=== PATIENT | female | born 1940 | race Caucasian/White ===

== ENCOUNTER 2017-05-18 10:32 | Emergency (ER) | payer OTHER ==
--- NOTE | 2017-05-18 11:04 | CPEKG ---
Heart Rate: 65 RR Interval: 923 P-R Interval: 156 QRSD Interval: 82 QT Interval: 384 QTC Interval: 400 P Sidney: 69 QRS Sidney: 61 T Wave Sidney: 66 EKG Severity - NORMAL ECG - EKG Impression: SINUS RHYTHM Electronically Signed By: Radha Pepper 18-May-2017 23:00:43
[2017-05-18] MEDS ORDERED: NS 1,000 ML IV ONE (11:08)
[2017-05-18 11:18] LABS: % IMMATURE GRANULYOCYTES 0.6 % (0.0-1.1); ABSOLUTE IMMATURE GRANULOCYTES 0.03 10^3/uL (0.00-0.10); ADD DIFF? NO; ADD MORPH? NO; ADD SCAN? NO; ATYPICAL LYMPHOCYTE FLAG 20 (0-99); FRAGMENT RBC FLAG 0 (0-99); HEMATOCRIT 41.3 % (38.0-47.0); HEMOGLOBIN 14.1 g/dL (12.6-16.3); LEFT SHIFT FLG 0 (0-99); LIPEMIA HEMOLYSIS FLAG 90 (0-99); MEAN CELL HEMOGLOBIN 31.8 pg (27.9-34.1); MEAN CELL HEMOGLOBIN CONCENTR. 34.1 g/dL (32.4-36.7); MEAN PLATELET VOLUME 11.1 fL (8.7-11.7); PLATELET CLUMPS FLAG 0 (0-99); PLATELET COUNT 220 10^3/uL (150-400); RED BLOOD CELL COUNT 4.44 10^6/uL (4.18-5.33); RED CELL DISTRIBUTION WIDTH 13.1 % (11.5-15.2)
--- NOTE | 2017-05-18 11:25 | EDPHY ---
H & P Stated Complaint: 2 episodes of syncope this morning. LOC reported by god daughter. Source: Patient Exam Limitations: No limitations - Personal History Current Tetanus Diphtheria and Acellular Pertussis (TDAP): Yes - Medical/Surgical History Hx Asthma: No Hx Chronic Respiratory Disease: No Hx Diabetes: No Hx Cardiac Disease: No Hx Renal Disease: No Hx Cirrhosis: No Hx Alcoholism: No Hx HIV/AIDS: No Hx Splenectomy or Spleen Trauma: No Other PMH: Glaucoma. l knee replacement. Hypotension. Hypothyroidism - Family History Significant Family History: No pertinent family hx - Social History Smoking Status: Former smoker Alcohol Use: None Time Seen by Provider: 05/18/17 10:59 HPI/ROS: CHIEF COMPLAINT: Syncope HISTORY OF PRESENT ILLNESS: Patient is a 76-year-old female who is brought in by her god daughter after a syncopal episode this morning. The patient states that she did not feel quite right when she woke up. She felt tired but thought that if she ate breakfast it would help. While sitting at the breakfast table she began to slump sideways. Her God daughter caught her and helped her to the couch. She fainted again in route to the couch. These episodes were only a few seconds apart. She did not vomit. She denies chest pain or palpitations. She continues to feel slightly tired and weak. No focal deficits. No seizure- like activity. No headache. No chest pain or palpitations. No nausea vomiting. No recent fevers or illness. No urinary symptoms. She states that she did begin taking a pain medication for her neck 3 nights ago but does not remember the name. She had been prescribed a long time ago but had never really used it. No bleeding. REVIEW OF SYSTEMS: Constitutional: denies: chills, fever, recent illness, recent injury EENTM: denies: blurred vision, double vision, nose congestion Respiratory: denies: cough, shortness of breath Cardiac: See HPI denies: chest pain, irregular heart rate, palpitations Gastrointestinal/Abdominal: denies: abdominal pain, diarrhea, nausea, vomiting, blood streaked stools Genitourinary: denies: dysuria, frequency, hematuria, pain Musculoskeletal: denies: joint pain, muscle pain Skin: denies: lesions, rash, jaundice, bruising Neurological: denies: headache, numbness, paresthesia, tingling, dizziness, weakness Hematologic/Lymphatic: denies: blood clots, easy bleeding, easy bruising Immunologic/allergic: denies: HIV/AIDS, transplant EXAM: GENERAL: Well-appearing, well-nourished and in no acute distress. HEAD: Atraumatic, normocephalic. EYES: Pupils equal round and reactive to light, extraocular movements intact, sclera anicteric, conjunctiva are normal. ENT: TMs normal, nares patent, oropharynx clear without exudates. Moist mucous membranes. NECK: Normal range of motion, supple without lymphadenopathy or JVD. LUNGS: Breath sounds clear to auscultation bilaterally and equal. No wheezes rales or rhonchi. HEART: Regular rate and rhythm without murmurs, rubs or gallops. ABDOMEN: Soft, nontender, normoactive bowel sounds. No guarding, no rebound. No masses appreciated. BACK: No CVA tenderness, no spinal tenderness, step-offs or deformities EXTREMITIES: Normal range of motion, no pitting or edema. No clubbing or cyanosis. NEUROLOGICAL: Cranial nerves II through XII grossly intact. Normal speech, normal gait. 5/5 strength, normal movement in all extremities, normal sensation PSYCH: Normal mood, normal affect. SKIN: Warm, dry, normal turgor, no visible rashes or lesions. (Lawrence Laura) Constitutional: Initial Vital Signs Temperature (C) 36.5 C 05/18/17 10:33 Heart Rate 70 05/18/17 10:33 Respiratory Rate 16 05/18/17 10:33 Blood Pressure 108/62 05/18/17 10:33 O2 Sat (%) 96 05/18/17 10:33 O2 Delivery Mode Room Air Allergies/Adverse Reactions: codeine [Codeine] Allergy (Verified 04/16/15 13:06) Vomiting latex Allergy (Verified 04/16/15 13:06) Rash beta blockers Allergy (Uncoded 04/16/15 13:06) Loss of consciousness Home Medications: Medication Instructions Recorded Brimonidine 0.1% [ALPHAGAN P 0.1% 1 drops EACHEYE BID@09,1530 06/17/14 (*)] Bimatoprost 0.01% [Lumigan 0.01% 1 drops EACHEYE HS 04/16/15 (*)] EPINEPHrine [Epipen 0.3 MG] 0.3 mg IM AD PRN 04/16/15 Multivitamins [Multivitamin (*)] 1 each PO DAILY 04/16/15 Baclofen [Baclofen 10 mg (*)] 10 mg PO TID PRN 05/18/17 Blink Eye Drops 1 drop EACHEYE DAILY PRN 05/18/17 Carboxymethylcellulose 1% [Refresh 1 drop EACHEYE DAILY PRN 05/18/17 Celluvisc (*)] Estradiol [Estradiol 1 MG (*)] 0.5 mg PO DAILY 05/18/17 Estradiol [VAGIFEM] 10 mcg VG Q3D@21 05/18/17 Herbals/Supplements -Info Only 1 ea PO DAILY 05/18/17 Levothyroxine [Synthroid 75 mcg 75 mcg PO DAILY06 05/18/17 (*)] Triamcinolone 0.1% [Triamcinolone 1 mary TP DAILY PRN 05/18/17 0.1% Cream (*)] Medical Decision Making - Diagnostics Imaging: Discussed imaging studies w/ call or contact centre team leader Radiologist - Diagnostics EKG Interpretation: An EKG obtained and was read and documented in trace view. Please see trace view for full reading and report. Sinus rhythm, no acute ischemic changes ( Lawrence Laura) ED Course/Re-evaluation: 5pm: This patient was seen by Dr. Yanez and will be discharged home. The pt and her family are happy with this plan and feel that the pt will be safe at home. (Radha Pepper) 12:20 p.m. we discussed the patient's test results thus far which are normal. Urinalysis is pending. The patient is asymptomatic. I recommended admission because of her age it and presenting history. She is agreeable this plan. She sees Dr. Garza is office. We will call them for admission. 12:40 p.m. I discussed the case with Dr. Garza who will admit. He states that the pain medication she started taking was probably meloxicam. (Lawrence Laura) Differential Diagnosis: Partial list of the Differential diagnosis considered include but were not limited to; syncope, dehydration, arrhythmia and although unlikely based on the history and physical exam, I also considered acute coronary disease, PE, dissection, infection. (Lawrence Laura) - Data Points Laboratory Results: Laboratory Results 12/13/17 11:05 05/18/17 11:05 Medications Given: Discontinued Medications Sodium Chloride (Ns) 1,000 mls @ 0 mls/hr IV EDNOW ONE; Wide Open PRN Reason: Protocol Stop: 05/18/17 11:09 Last Admin: 05/18/17 11:44 Dose: 1,000 mls Departure - Departure Disposition: [facility] Inpatient Acute Clinical Impression: Syncope and collapse Condition: Good Instructions: Syncope (ED), Syncope (DC) Additional Instructions: if this happens again please return to the Emergency Department for further evaluation. Referrals: Kedar Morris PA [Primary Care Provider] - follow up in 1 week
[2017-05-18 11:29] LABS: APTT 26.3 SEC (23.0-38.0); INR 1.01 (0.83-1.16); PROTIME(PATIENT) 13.5 SEC (12.0-15.0)
[2017-05-18 11:31] LABS: ANION GAP 12 mEq/L (8-16); CALCIUM 9.7 mg/dL (8.5-10.4); CARBON DIOXIDE 25 mEq/l (22-31); CHLORIDE 103 mEq/L (97-110); GLOMERULAR FILTRATION RATE 54; GLUCOSE 74 mg/dL (70-100); POTASSIUM 4.6 mEq/L (3.5-5.2); SODIUM 140 mEq/L (134-144)
[2017-05-18 11:41] LABS: TROPONIN I < 0.012 ng/mL (0.000-0.034)
[2017-05-18 12:41] LABS: COLOR YELLOW; LEUKOCYTE ESTERASE,URINE TRACE (NEGATIVE); NITRITE,URINE NEGATIVE (NEGATIVE)
[2017-05-18 12:47] LABS: MUCUS TRACE /lpf (NONE-1+)
[2017-05-18 15:02] VITALS: TEMP 97.9
[2017-05-18 16:31] VITALS: RESP 19; O2SAT 94
[2017-05-18 17:02] VITALS: BP 109/63; PULSE 67
== END 2017-05-18 17:40 | disposition still patient (30) ==
LOC: UNDOADMOB 12:18
DX: R55 Syncope and collapse (principal); E86.9 Volume depletion, unspecified; Z87.891 Personal history of nicotine dependence; Z91.040 Latex allergy status

== ENCOUNTER → 2017-11-14 | Outpatient (CLI) | payer OTHER | LOC: FIMAGING 11:15 | PROVIDERS: ATTEND Internal Medicine | DX: Z13.820 Encounter for screening for osteoporosis (principal); M85.89 Other specified disorders of bone density and structure, multiple sites; Z78.0 Asymptomatic menopausal state ==